=== PATIENT | female | born 1965 | race Hispanic/Latino ===

== ENCOUNTER 2017-10-28 11:11 | Emergency (ER) | payer OTHER ==
[~2017-10-28] VITALS: Ht 157.5 cm; Wt 67.1 kg
[~2017-10-28 11:11] MED LIST: [UNRECOGNIZED DRUG - OTHER]
--- OUTSIDE RECORDS SUMMARY | 2017-10-28 11:13 | XMS REPORT | Summary of Care ---
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 Unavailable Unavailable IVANA MEDRANO SD, RHINA RODRIGUEZ Unavailable Unavailable Unavailable Unavailable Functional Status Name Dates Details Functional status health issues are not documented Status: Name Dates Details Cognitive status health issues are not documented Status: Problems Name Dates Details Menopause (627.2, Z78.0) Status: Active Screening for malignant neoplasm of breast (V76.10, Z12.31) Status: Active Postmenopausal atrophic vaginitis (627.3, N95.2) Status: Active Colon cancer screening (V76.51, Z12.11) Status: Active Encounter for gynecological examination with Papanicolaou smear of cervix ( V72.31, Z01.419) Status: Active Cervical cancer screening (V76.2, Z12.4) Status: Active Acute pharyngitis (462, J02.9) Status: Active BMI 28.0-28.9,adult (V85.24, Z68.28) Status: Active At risk for nutrition deficiency (V49.89, Z91.89) Status: Active Abnormal blood level of mineral (790.6, R79.0) Status: Active Palpitations (785.1, R00.2) Status: Active Premature ventricular contraction on electrocardiography (427.69, I49.3) Status: Active Nonspecific finding on examination of urine (791.9, R82.90) Status: Active Urinary tract infection (599.0, N39.0) Status: Active Frequent urination (788.41, R35.0) Status: Active Pelvic pain (R10.2) Status: Active Abnormal mammogram of left breast (793.80, R92.8) Status: Active Hyperlipidemia (272.4, E78.5) Status: Active Current use of proton pump inhibitor (V58.69, Z79.899) Status: Active Physical exam, annual (V70.0, Z00.00) Status: Active Pap smear for cervical cancer screening (V76.2, Z12.4) Status: Active Breast cancer screening (V76.10, Z12.31) Status: Active Post-menopausal (V49.81, Z78.0) Status: Active Body aches (780.96, R52) Status: Active Acute URI (465.9, J06.9) Status: Active Acute bronchitis due to other specified organisms (466.0, J20.8) Status: Active Allergic rhinitis due to pollen (477.0, J30.1) Status: Active Encounter for long-term (current) use of high-risk medication (V58.69, Z79.899 ) Status: Active GERD without esophagitis (530.81, K21.9) Status: Active Abdominal pain (789.00, R10.9) Status: Active Acid reflux (530.81, K21.9) Status: Active Plantar fasciitis (728.71, M72.2) Status: Active Osteoporosis of vertebra (733.00, M81.0) Status: Active Osteopenia of lumbar spine (733.90, M85.88) Status: Active Osteopenia of neck of right femur (733.90, M85.851) Status: Active Medications Name Dates Details Calcium 600 MG Oral Tablet TAKE 2 TABLET DAILY * Start : 18-Jan-2015 Active Vitamin B-12 1000 MCG Oral Tablet One tablet by mouth daily * Quantity: 90 Refills: 3 IVANA Burt, RHINA * Start : 30-Dec-2015 Active MethylPREDNISolone 4 MG Oral Tablet TAKE 1 TABLET TWICE A DAY FOR 3 DAYS FOLLOWED BY 1 TABLET DAILY FOR 7 DAYS * Quantity: 13 Refills: 0 TYLER HEATH M.D.NDA * Start : 29-Jul-2017 Active Risedronate Sodium 35 MG Oral Tablet Delayed Release TAKE 1 TABLET WEEKLY IN THE MORNING IMMEDIATELY AFTER BREAKFAST WITH AT LEAST 4 OUNCES OF WATER. REMAIN UPRIGHT FOR 30 MINUTES AFTER * Quantity: 12 Refills: 3 IVANA Burt, RHINA * Start : 29-Jul-2017 Active Meloxicam 15 MG Oral Tablet TAKE 1 TABLET BY MOUTH DAILY WITH FOOD * Quantity: 30 Refills: 0 RHINA HEATH M.D. * Start : 11-Sep-2017 Active RaNITidine HCl - 150 MG Oral Tablet TAKE 1 TABLET AT BEDTIME. * Quantity: 90 Refills: 3 JASON NICHOLS N.P. * Start : 18-Oct-2017 Active Allergies and Adverse Reactions Name Dates Details No Known Drug Allergies (Allergy) Status: Active Past Medical History Name Dates Details History of bronchitis (V12.69, Z87.09) Status: Resolved History of Dysuria (788.1, R30.0) Status: Resolved History of Flu-like symptoms (780.99, R68.89) Status: Resolved History of Flushing (782.62, R23.2) Status: Resolved History of hematuria (V13.09, Z87.448) Status: Resolved History of Need for Tdap vaccination (V06.1, Z23) Status: Resolved History of Nonspecific abnormal finding (796.9, R68.89) Status: Resolved History of Polyp of sigmoid colon (211.3, D12.5) Status: Resolved History of Racing heart beat (785.0, R00.0) Status: Resolved History of rosacea (V13.3, Z87.2) Status: Resolved History of Tachycardia (785.0, R00.0) Status: Resolved History Of The ___ : Status: Resolved History of vaginitis (V13.29, Z87.42) Status: Resolved Procedures Procedure Dates Details History of Complete Colonoscopy Completed History of Cholecystectomy Laparoscopic Completed Immunization Name Dates Details Tdap (Adacel) Lot #: [id number] on: 23-Dec-2014 Family History Name Dates Details Family history of Diabetes Mellitus (V18.0) Status: Active Family history of Colon Cancer (V16.0) Status: Active Family history of Rheumatoid Arthritis Status: Active Family history of Colon cancer (153.9, C18.9) Status: Active Name Dates Details Family history of Hypertension (V17.49) Status: Active Social History Name Dates Details - Status: Name Dates Details Never smoker Vital Signs Date Test Result Details [id number] BP Systolic 112 mm[Hg] Status: Comments: Location: LUE; Position: Sitting BP Diastolic 69 mm[Hg] Status: Comments: Location: LUE; Position: Sitting Height 61 in Status: Weight 163 lb Status: Body Mass Index Calculated 30.8 kg/m2 Status: Body Surface Area Calculated 1.73 m2 Status: Temperature 97.9 f Status: Comments: Method: Oral Heart Rate 61 /min Status: Comments: Location: L Radial; Quality: Normal Results Date Description Value Details Results not documented Plan of Care Name Dates Details Planned Observations Planned Goals not documented Planned Encounters Appointment; RHINA HEATH M.D. On: 10-Mar-2018 10:30 Appointment; ELENITA ARAUJO M.D. On: 25-Mar-2018 15:45 Interventions Provided Medication Changes* RaNITidine HCl - 150 MG Oral Tablet - Start Instructions Name Dates Details Instructions not documented Encounters Appointment; RHINA HEATH M.D. Encounter Diagnosis: Problem not documented On: 23-Dec-2015 10:45 Appointment; LUZ MCCANN M.D. Encounter Diagnosis: Problem not documented On: 04-Jan-2016 8:40 [facility] Encounter Diagnosis: Problem not documented On: 09-Jan-2016 13:00 [facility] Encounter Diagnosis: Problem not documented On: 09-Jan-2016 15:00 Appointment; LUZ MCCANN M.D. Encounter Diagnosis: Problem not documented On: 01-Feb-2016 9:40 Appointment; ZEKE CARDOSO NP Encounter Diagnosis: Problem not documented On: 17-Feb-2016 13:00 Appointment; ELENITA ARAUJO M.D. Encounter Diagnosis: Problem not documented On: 12-Apr-2016 15:30 Appointment; ZEKE CARDOSO NP Encounter Diagnosis: Problem not documented On: 01-May-2016 15:30 Appointment; RHINA HEATH M.D. Encounter Diagnosis: Problem not documented On: 08-Mar-2017 14:15 Appointment; ZEKE CARDOSO NP Encounter Diagnosis: Problem not documented On: 11-Apr-2017 13:30 Appointment; ZEKE CARDOSO NP Encounter Diagnosis: Problem not documented On: 19-Apr-2017 14:30 Appointment; RHINA HEATH M.D. Encounter Diagnosis: Problem not documented On: 29-Jul-2017 13:15 Appointment; ELENITA ARAUJO M.D. Encounter Diagnosis: Problem not documented On: 26-Aug-2017 15:45 Appointment; ELENITA ARAUJO M.D. Encounter Diagnosis: Problem not documented On: 24-Sep-2017 15:45
[2017-10-28] MEDS ORDERED: KETOROLAC TROMETHAMINE 60 MG/2 ML VIAL IM ONE (12:15)
[2017-10-28] MEDS ORDERED: HYDROCODONE/APAP 7.5MG-325MG 1 EA TAB PO PRN (12:15)
[2017-10-28] MEDS ORDERED: DEXAMETHASONE SOD PHOS 10 MG/1 ML VIAL INJ ONE (13:00)
[2017-10-29] MEDS ORDERED: DIAZEPAM 5 MG TAB PO SCH (09:00)
== END 2017-10-28 13:30 | disposition home or self-care (01) ==
LOC: ER 11:11
DX: S39.012A Strain of muscle, fascia and tendon of lower back, initial encounter (principal); X50.1XXA Overexertion from prolonged static or awkward postures, initial encounter; Y93.89 Activity, other specified; Y92.019 Unspecified place in single-family (private) house as the place of occurrence of the external cause
CPT/HCPCS: 96372; 99283; J1100; J1885